=== PATIENT | female | born 1950 | race Asian ===

== ENCOUNTER → 2024-05-19 | Outpatient (CLI) | payer MEDICARE, OTHER | END | disposition home or self-care (01) | LOC: RAH 13:28 | PROVIDERS: ATTEND Internal Medicine | DX: K59.00 Constipation, unspecified (principal) | CPT/HCPCS: 74018 ==

== ENCOUNTER 2025-11-06 08:22 | Emergency (ER) | payer OTHER, MEDICARE ==
[~2025-11-06] VITALS: Ht 152.4 cm; Wt 36.3 kg
[2025-11-06 09:08] LABS: APPEARANCE,URINE CLEAR (CLEAR); GLUCOSE, URINE (UA) NEGATIVE (NEGATIVE); LEUKOCYTE ESTERASE ,URINE NEGATIVE Leu/uL (NEGATIVE); NITRATE,URINE NEGATIVE (NEGATIVE); OCCULT BLOOD,URINE NEGATIVE (NEGATIVE)
[2025-11-06 09:15] LABS: ADD UA MICROSCOPIC YES
--- NOTE | 2025-11-06 09:15 | ERN ---
ED Note History of Present Illness Stated Complaint: ABDOMINAL PAIN Chief Complaint: Abdominal Pain Time Seen by MD: 08:47 Dictation: This is a 74-year-old female who presented to the emergency room with multiple complaints right-sided abdominal pain across the right upper quadrant and right lower quadrant. Also upper lip swelling and skin rash which started on Saturday. No nausea vomitings diarrhea Temperature 98.1 pulse 79 respirations 20 blood pressure 130/78 with a pulse oximetry of 99% on room air Chronic medical problems include hypertension, osteoarthritis, coronary artery disease with stents Allergies: Coded Allergies: Penicillins (Unverified Allergy, Unknown, HIVES, 11/06/25) Sulfa (Sulfonamide Antibiotics) (Unverified Allergy, Unknown, HIVES, 11/06) Past Medical History Past Medical History: CAD, Hypertension, Other Additional Past Medical Hx: OSTEOARTHRITIS Surgical History: Other Surgical History Other: CARDIAC STENTS Family History: Negative Social History: Negative History: Not Applicable RN Note Reviewed/Agreed w/PFSH: Yes Review of System Dictation Constitutional: Negative for fever,chills, and weight loss Eyes: Negative for injury, pain,redness, and discharge ENT: Negative for injury,pain or swelling positive for lip swelling Cardiovascular: Negative for chest pain, palpitations, and edema Respiratory: Negative for shortness of breath, cough, and wheezing, Abdomen/GI: Positive for abdominal pain, denied nausea, vomiting, diarrhea, and constipation Back: Negative for injury and pain : Negative for injury, bleeding and discharge MS/Extremity: Negative for injury and deformity Skin: Negative for rash, and discoloration Neuro: Negative for headache, weakness, numbness, tingling, and seizure Psych: Negative for suicide ideation, homicidal ideation, and hallucinations Initial Vital Sign VS Vital Signs Date Time Temp Pulse Resp B/P (MAP) Pulse Ox O2 Delivery O2 Flow Rate FiO2 11/06/25 08:24 98.1 79 20 130/78 99 Room Air 11/06/25 10:23 0 21 Physical Exam Dictation General: awake, alert, NAD very thin female Head/Face: Normocephalic, atraumatic Eyes: PERRL, EOMI, vision at baseline ENT: oral cavity clear, TMs clear, no signs of infection mild lower lip sw elling Neck: Trachea midline, supple, no nuchal rigidity Cardiovascular: RRR, normal S1/S2, No MRGs, no JVD Respiratory: CTAB, no respiratory distress, No rales or wheezes Abdomen: Soft, non-tender, non-distended, normal bowel sounds, no guarding or rebound. Skin: Warm, dry, normal turgor, no rash MS/Extremity: Pulses equal, no cyanosis, neurovascular intact, FROM Neuro: COAx4, GCS 15, strength 5/5, CN 2-12 intact, normal cerebellar exam, normal gait, Psych: Normal behavior, mood, and affect normal Extremities-trace edema without any palpable cords, Homans sign is negative Results (Laboratory/Radiology) Laboratory/Radiology Laboratory Tests Test 11/06/25 09:00 11/06/25 09:23 Urine Color YELLOW (YELLOW) Urine Appearance CLEAR (CLEAR) Urine pH 6.5 (5.0-8.0) Urine Specific [place] 1.023 (1.001-1.031) Urine Protein 10 mg/dL (NEGATIVE) H Urine Glucose (UA) NEGATIVE mg/dL (NEGATIVE) Urine Ketones 10 mg/dL (NEGATIVE) H Urine Occult Blood NEGATIVE (NEGATIVE) Urine Nitrate NEGATIVE (NEGATIVE) Urine Bilirubin NEGATIVE mg/dL (NEGATIVE) Urine Urobilinogen 0.2 mg/dL (0.2-1.0) Urine Leukocyte Esterase NEGATIVE [place]/uL Urine RBC 6-10 /HPF (0-1) H Urine WBC 2-5 /HPF (0-1) H Urine Squamous Epithelial Cells RARE /HPF (0-2) Urine Bacteria RARE /HPF (None Seen) White Blood Count 4.2 K/uL (4.8-10.8) L Red Blood Count 4.34 MIL/uL (4.00-5.50) Hemoglobin 12.7 g/dL (12.0-16.0) Hematocrit 39.3 % (36-48) Mean Corpuscular Volume 90.6 fL (79-99) Mean Corpuscular Hemoglobin 29.3 pg (27.0-33.0) Mean Corpuscular Hemoglobin Concent 32.3 g/dL (32.0-36.0) Red Cell Distribution Width 12.1 % (11.0-15.5) Platelet Count 270 K/uL (130-400) Mean Platelet Volume 8.6 fL (7.5-10.5) Immature Granulocyte % (Auto) 0.2 % (0-1) Neutrophils (%) (Auto) 70.7 % (40.0-77.0) Lymphocytes (%) (Auto) 16.0 % (21.0-51.0) L Monocytes (%) (Auto) 10.0 % (3.0-13.0) Eosinophils (%) (Auto) 2.4 % (0.0-8.0) Basophils (%) (Auto) 0.7 % (0.0-5.0) Neutrophils # (Auto) 3.0 K/uL (1.8-7.7) Lymphocytes # (Auto) 0.7 K/uL (1.0-4.8) L Monocytes # (Auto) 0.4 K/uL (0.1-1.0) Eosinophils # (Auto) 0.10 K/uL (0.00-0.70) Basophils # (Auto) 0.03 K/uL (0.00-0.20) Absolute Immature Granulocyte (auto 0.01 K/uL (0-1) Nucleated Red Blood Cells 0.0 % (0.0-0.19) Sodium Level 138 mmol/L (136-145) Potassium Level 3.6 mmol/L (3.5-5.1) Chloride Level 104 mmol/L (101-111) Carbon Dioxide Level 28 mmol/L (21-32) Blood Urea Nitrogen 9 mg/dL (7-18) Creatinine 0.7 mg/dL (0.5-1.0) Glomerular Filtration Rate Calc 91 mL/min (>90) Random Glucose 85 mg/dL (70-105) Total Calcium 8.5 mg/dL (8.5-10.1) Lipase 43 U/L (16-77) Labs Reviewed?: Yes CT Scan Comment: REASON: RLQ and Right sided severe abdominal pain ORDERING PHYSICIAN: CORRY DWYER MD PROCEDURE: ABD PELVWO - CT ABD/PEL WO CON RENAL/APPY EXAM: CT Abdomen and Pelvis Without IV contrast CLINICAL HISTORY: RLQ and Right sided severe abdominal pain TECHNIQUE: Axial computed tomography images of the abdomen and pelvis without intravenous contrast. CONTRAST: No IV contrast. COMPARISON: None provided. FINDINGS: LUNG BASES: Mild atelectatic bands along left lower lobe. LIVER: Unremarkable. GALLBLADDER AND BILE DUCTS: The gallbladder appears within normal limits. No radioopaque gallstones are seen. No biliary ductal dilatation is evident. PANCREAS: Unremarkable. SPLEEN: Unremarkable. ADRENAL GLANDS: Unremarkable. KIDNEYS, URETERS, AND BLADDER: The kidneys appear within normal limits. There is no hydronephrosis or hydroureter. No urinary calculi are seen. STOMACH AND BOWEL: Unremarkable appearance of the stomach and bowel. No evidence of bowel obstruction. No evidence suggesting enteritis or colitis. APPENDIX: No evidence of acute appendicitis on CT examination. PERITONEUM: No free fluid. No free air. LYMPH NODES: No lymphadenopathy is evident. REPRODUCTIVE: 1.4 x 1.1 cm presumed Bartholin's gland cyst at the left vulva. Clinical correlation is advised. Reproductive organs are otherwise unremarkable. VASCULATURE: No evidence of abdominal aortic aneurysm. Atheromatous calcifications in the aorta. BONES: No aggressive appearing osseous lesion. No acute osseous pathology is evident. Degenerative changes in the spine. IMPRESSION: 1. No acute intraabdominal or pelvic pathology. /[place] DICTATED BY: REGIS HARTMAN Jr., MD DATE: 11/06/251312 ELECTRONICALLY SIGNED BY: REGIS HARTMAN Jr., MD DATE: 11/06/251312 ED Course ED Course Orders Procedure Category Date Status Time Urinalysis Profile LAB 11/06/25 Complete 09:01 Methylprednisolone PHA 11/06/25 Complete Succ 40mg (Solu-Medro 09:30 Diphenhydramine Hcl PHA 11/06/25 Complete (Benadryl Inj) 09:30 Famotidine 20mg Vial PHA 11/06/25 Complete (Pepcid 20mg Vial) 09:30 Morphine 2mg Syg PHA 11/06/25 Complete (Morphine 2mg Syg) 09:30 Cbc With Differential LAB 11/06/25 Complete 09:10 Basic Metabolic Panel LAB 11/06/25 Complete 09:10 Lipase LAB 11/06/25 Complete 09:10 Ct Abd/Pel Wo Con CT 11/06/25 Resulted Renal/Appy 10:12 Current Medications Medications (Trade) Dose Ordered Sig/Danilo Route PRN Reason Start Time Stop Time Status Last Admin Dose Admin Diphenhydramine HCl (BENAdryl INJ) 25 mg ONCE ONCE IV 11/06/25 09:30 11/06/25 09:31 DC 11/06/25 09:31 Famotidine (Pepcid 20mg Vial) 20 mg ONCE ONCE IV 11/06/25 09:30 11/06/25 09:31 DC 11/06/25 09:30 Methylprednisolone Sodium Succinate (Solu-medROL 40MG) 40 mg ONCE ONCE IVP 11/06/25 09:30 11/06/25 09:31 DC 11/06/25 09:32 Morphine Sulfate (morPHINE 2MG SYG) 2 mg ONCE ONCE IVP 11/06/25 09:30 11/06/25 09:31 DC 11/06/25 09:32 Vital Signs Date Time Temp Pulse Resp B/P (MAP) Pulse Ox O2 Delivery O2 Flow Rate FiO2 11/06/25 12:28 98.1 74 20 115/76 99 Room Air* 0 21 11/06/25 11:00 98.1 72 20 118/73 99 Room Air* 0 21 11/06/25 10:23 98.1 78 20 125/76 99 Room Air* 0 21 11/06/25 08:24 98.1 79 20 130/78 99 Room Air Medical Decision Making MDM Differential diagnosis: Renal colic, biliary colic Gastritis, esophagitis, gastroesophageal reflux disease, acute cholecystitis, peptic ulcer disease, gastroenteritis, colitis, constipation, pancreatitis, diverticulitis This is a 74-year-old female who presented to the emergency room with multiple complaints right-sided abdominal pain across the right upper quadrant and right lower quadrant. Also upper lip swelling and skin rash which started on Saturday. No nausea vomitings diarrhea Temperature 98.1 pulse 79 respirations 20 blood pressure 130/78 with a pulse oximetry of 99% on room air Chronic medical problems include hypertension, osteoarthritis, coronary artery disease with stents 9:00 a.m. urinalysis negative for a UTI. 10:00 a.m. CBC with a normal limits BNP [address] scan of the abdomen and pelvis requested which was essentially unremarkable for any acute abnormalities. I updated the patient and her spouse on all the lab tests and the workup so far they were satisfied. I will discharge her to follow up with her primary care physician Rationale: Tests considered and ordered secondary to shared decision making include: Labs and CT scan of the abdomen Previous outside records reviewed: Old ER visits. Risk of complication and/or morbidity or mortality of patient management: None Medications-Per medication reconciliation Need for hospitalization: Patient does not meet criteria for hospitalization. Need for emergency major/minor surgery: No There are no social concerns with this patient. Prescription drug management Prescriptions will include symptomatic care Patient's prior external medical records from other ER visits were reviewed by me as indicated. Prior testing and results from previous visits were reviewed. Prior tests were taken into account with medical decision making and resource utilization, independent historian/historians were used to obtain complete medical history. I independently interpreted the test that were performed, results were reviewed by me and considered findings on radiology if ordered. Medical management and examination interpretation discussions were had by me with other qualified healthcare professionals as indicated for the patient's care. Problem List Problem List: (1) Nonspecific abdominal pain (2) Allergic reaction DX & DISP Disposition: Discharge Departure Impression: Primary Impression: Nonspecific abdominal pain Additional Impression: Allergic reaction Condition: Stable Additional Instructions: Patient and the caregiver have been informed of all the diagnostic tests and the imaging conducted during the today's visit to the emergency room and has verbalized understanding of the results I have personally reviewed and interpreted all diagnostic exams performed here in the ER today as well as the vital signs documented by the nursing staff. The patient is now being discharged to home and should follow up with the primary care physician or the specialist as directed by the ER staff. 1 schedule a follow-up appointment; call your primary care physician's office on the next business day to set up a follow-up appointment. 2. Monitor symptoms; if your symptoms worsen return to the emergency room immediately. 3. Return to school/work; you may return to work or school in 2 days or as directed by your primary care physician. 4. Manage pain and fever; take [id number] Tylenol or Advil for pain or fever if there are no contraindications follow the recommended dosage instructions. 5. Stay well hydrated; drink plenty of oral fluids to stay hydrated. 6. Take prescribed medications; take any medications prescribed in the emergency room as directed bring them with you to your primary care physician visit for possible adjustments. 7. Complete medication course; finish the entire course of medication as prescribed even if you start feeling better. Do not have any leftover medication unless instructed otherwise. 8. Follow up on culture results; if a urine culture and wound culture was ordered in the emergency room please follow-up with your primary care physician within 2-3 days to review the culture and sensitivity report for appropriate antibiotic therapy adjustments. 9. Resume home medications; you may resume taking your home medications unless instructed otherwise. Referrals: ROSA LOCK MD (PCP) CORRY DWYER MD Nov 06, 2025 09:15
[2025-11-06 09:16] LABS: SQUAMOUS EPITHELIAL CELL,UR RARE /HPF (0-2)
[2025-11-06 09:29] LABS: IMMATURE GRANULOCYTE ABSOLUTE 0.01 K/uL (0-1); NUCLEATED RED BLOOD CELLS 0.0 % (0.0-0.19); PLATELET COUNT (AUTO) 270 K/uL (130-400); RED BLOOD CELL COUNT(AUTO) 4.34 MIL/uL (4.00-5.50); RED CELL DISTRIBUTION WIDTH 12.1 % (11.0-15.5); WHITE BLOOD COUNT (AUTO) 4.2 K/uL (4.8-10.8)
[2025-11-06] MEDS: FAMOTIDINE 20MG VIAL IV ONE (09:30)
[2025-11-06] MEDS: Solu-medROL 40MG VIAL IVP ONE (09:32)
[2025-11-06 09:39] LABS: CREATININE 0.7 mg/dL (0.5-1.0); GLOMERULAR FILTR. RATE CALC 91.0 mL/min (>90); GLUCOSE,RANDOM 85.0 mg/dL (70-105); SODIUM SERUM 138.0 mmol/L (136-145); UREA NITROGEN, BLOOD 9.0 mg/dL (7-18)
--- NOTE | 2025-11-06 12:14 | HMCIMG ---
EXAM: CT Abdomen and Pelvis Without IV contrast CLINICAL HISTORY: RLQ and Right sided severe abdominal pain TECHNIQUE: Axial computed tomography images of the abdomen and pelvis without intravenous contrast. CONTRAST: No IV contrast. COMPARISON: None provided. FINDINGS: LUNG BASES: Mild atelectatic bands along left lower lobe. LIVER: Unremarkable. GALLBLADDER AND BILE DUCTS: The gallbladder appears within normal limits. No radioopaque gallstones are seen. No biliary ductal dilatation is evident. PANCREAS: Unremarkable. SPLEEN: Unremarkable. ADRENAL GLANDS: Unremarkable. KIDNEYS, URETERS, AND BLADDER: The kidneys appear within normal limits. There is no hydronephrosis or hydroureter. No urinary calculi are seen. STOMACH AND BOWEL: Unremarkable appearance of the stomach and bowel. No evidence of bowel obstruction. No evidence suggesting enteritis or colitis. APPENDIX: No evidence of acute appendicitis on CT examination. PERITONEUM: No free fluid. No free air. LYMPH NODES: No lymphadenopathy is evident. REPRODUCTIVE: 1.4 x 1.1 cm presumed Bartholin's gland cyst at the left vulva. Clinical correlation is advised. Reproductive organs are otherwise unremarkable. VASCULATURE: No evidence of abdominal aortic aneurysm. Atheromatous calcifications in the aorta. BONES: No aggressive appearing osseous lesion. No acute osseous pathology is evident. Degenerative changes in the spine. IMPRESSION: 1. No acute intraabdominal or pelvic pathology. /[place]
[2025-11-06 12:28] VITALS: BP 115/76; PULSE 74; RESP 20; TEMP 98.1; O2SAT 99
== END 2025-11-06 12:31 | disposition home or self-care (01) ==
LOC: EDH 08:22
DX: T78.40XA Allergy, unspecified, initial encounter (principal); R10.9 Unspecified abdominal pain; R22.0 Localized swelling, mass and lump, head; R21 Rash and other nonspecific skin eruption; I10 Essential (primary) hypertension; I25.10 Atherosclerotic heart disease of native coronary artery without angina pectoris; M19.90 Unspecified osteoarthritis, unspecified site; Z88.2 Allergy status to sulfonamides; Z88.0 Allergy status to penicillin; Z95.5 Presence of coronary angioplasty implant and graft; X58.XXXA Exposure to other specified factors, initial encounter
CPT/HCPCS: 99285; 74176; 96374; 96375; 80048; 83690; 85025; 81001; 36415; J2919; J1200; J1308; J2270